=== PATIENT | male | born 1975 | race Caucasian/White ===

== ENCOUNTER 2017-06-11 11:11 | Emergency (ER) | payer BC ==
[2017-06-11] MEDS ORDERED: CLONIDINE HCL 0.1 MG TABLET PO ONE (12:06)
[2017-06-11] MEDS ORDERED: LORAZEPAM 2 MG/ML VIAL IM ONE (12:06)
[2017-06-11] MEDS ORDERED: PROMETHAZINE HCL 25 MG/ML VIAL IM ONE (12:06)
[2017-06-11] MEDS ORDERED: HYDROMORPHONE HCL 2 MG/ML VIAL IM ONE (12:14)
[2017-06-11 12:33] LABS: HEMATOCRIT 46.2 % (42.0-52.0); HEMOGLOBIN 16.4 gm/dl (14.0-18.0); MEAN CELL VOLUME 87.8 fl (81-97); MEAN CORPUSCULAR HEMOGLOBIN 31.2 pg (27-33); MEAN CORPUSCULAR HGB CONC 35.5 g/dl (32-36); MEAN PLATELET VOLUME 11.3 fl (7.4-10.4); PLATELET COUNT 203 K/uL (130-400); RED BLOOD COUNT 5.26 M/uL (4.40-5.70); RED CELL DISTRIBUTION WIDTH 13.3 % (11.5-14.5); WHITE BLOOD COUNT W/O DIFF 12.2 K/uL (4.2-12.2)
[2017-06-11 12:46] LABS: BLOOD UREA NITROGEN 20 mg/dL (6-20); CREATININE 0.8 mg/dL (0.7-1.2); EST GLOMERULAR FILTRATION RATE > 60 mL/min; TOTAL PROTEIN 8.6 g/dL (6.6-8.7)
[2017-06-11 12:48] LABS: GLUCOSE,RANDOM 139 mg/dL (74-109)
[2017-06-11 12:51] LABS: ALB/GLOB RATIO 1.3 (1.1-1.8); ALBUMIN 4.8 g/dL (4.0-5.0); ALKALINE PHOSPHATASE 80 U/L (40-129); ALT/SGPT 18 U/L (<41); AST/SGOT 25 U/L (10.0-50.0); PLATELET ESTIMATE NORMAL (NORMAL)
--- NOTE | 2017-06-11 12:54 | Emergency Department Record ---
History of Present Illness - General Chief complaint: Vomiting Stated complaint: VOMITING Time Seen by Provider: 06/11/17 11:27 Source: Patient Mode of Arrival: Ambulatory Limitations: No limitations - History of Present Illness Initial comments: pt is decreasing his oxycontin and is now vomiting and having withdrawal. pt is also having severe back pain that is chronic MD complaint: Abdominal pain, Nausea, Vomiting Onset/Timin -: Days(s) Associated Abdominal Pain: Yes Location: Diffuse Severity: Moderate Quality: Cramping, Sharp Consistency: Constant Improves with: None Worsens with: None Context: Other Associated Symptoms: Nausea/vomiting - Related Data Home Medications Medication Instructions Recorded Confirmed Last Taken Ergocalciferol (Vitamin D2) 06/11/17 Unknown [Vitamin D2] Previous Rx's Medication Instructions Recorded Clonidine HCl 0.1 mg PO BID #7 tablet 06/11/17 Lorazepam [Ativan] 0.5 mg PO QID #10 tablet 06/11/17 Ondansetron [Zofran Odt] 4 mg PO Q8H #10 tab.rapdis 06/11/17 Allergies Allergy/AdvReac Type Severity Reaction Status Date / Time No Known Drug Allergies Allergy Verified 06/11/17 11:48 Travel Screening - Travel/Exposure Within Last 30 Days Have you traveled within the last 30 days?: No - Travel/Exposure Within Last Year Have you traveled outside the [place] in the last year?: No - Additonal Travel Details Have you been exposed to anyone with a communicable illness?: No - Travel Symptoms Symptom Screening: None Review of Systems Reviewed: No additional complaints except as noted below Constitutional: Reports: As per HPI. Denies: Chills, Fever, Malaise, Night sweats, Weakness, Weight change Eyes: Reports: As per HPI. Denies: Eye discharge, Eye pain, Photophobia, Vision change ENT: Reports: As per HPI. Denies: Congestion, Dental pain, Ear pain, Epistaxis , Hearing loss, Throat pain Respiratory: Reports: As per HPI. Denies: Cough, Dyspnea, Hemoptysis, Stridor, Wheezes Cardiovascular: Reports: As per HPI. Denies: Arrhythmia, Chest pain, Dyspnea on exertion, Edema, Murmurs, Orthopnea, Palpitations, Paroxysmal nocturnal dyspnea, Rheumatic Fever, Syncope Endocrine: Reports: As per HPI. Denies: Fatigue, Heat or cold intolerance, Polydipsia, Polyuria Gastrointestinal: Reports: As per HPI, Abdominal pain, Nausea, Vomiting. Denies : Constipation, Diarrhea, Hematemesis, Hematochezia, Melena Genitourinary: Reports: As per HPI. Denies: Dysuria, Frequency, Hematuria, Incontinence, Retention, Testicular pain, Testicular mass, Urgency Musculoskeletal: Reports: As per HPI. Denies: Arthralgia, Back pain, Gout, Joint swelling, Myalgia, Neck pain Skin: Reports: As per HPI. Denies: Bruising, Change in color, Change in hair/ nails, Lesions, Pruritus, Rash Neurological: Reports: As per HPI. Denies: Abnormal gait, Confusion, Headache, Numbness, Paresthesias, Seizure, Tingling, Tremors, Vertigo, Weakness Psychiatric: Reports: As per HPI. Denies: Anxiety, Auditory hallucinations, Depression, Homicidal thoughts, Suicidal thoughts, Visual hallucinations Hematological/Lymphatic: Reports: As per HPI. Denies: Anemia, Blood Clots, Easy bleeding, Easy bruising, Swollen glands Past Medical History - SOCIAL HISTORY Smoking Status: Current some day smoker Alcohol Use: None Drug Use: Heavy Drug Use Detail:: Methamphetamine - RESPIRATORY Hx Respiratory Disorders: Yes Hx Pneumonia: Yes - CARDIOVASCULAR Hx Cardio Disorders: Yes Comment:: high cholesterol - NEURO Hx Neuro Disorders: Yes Hx Neuropathy: Yes Comment:: chronic back pain - GI Hx GI Disorders: Yes Hx Nausea/Vomiting: Yes Hx Wt Loss/Wt Gain: Yes - Hx Genitourinary Disorders: No - ENDOCRINE Hx Endocrine Disorders: No Hx Diabetes: No Hx Thyroid Disease: No - MUSCULOSKELETAL Hx Musculoskeletal Disorders: Yes Comment:: chronic back pain - PSYCH Hx Psych Problems: No - HEMATOLOGY/ONCOLOGY Hx Hematology/Oncology Disorders: No Family Medical History Any Significant Family History?: Yes Hx Alcohol Use: Grandparents Hx Anxiety: Mother Hx Cancer: Grandparents Hx Dementia: Grandparents Hx Diabetes: Grandparents Hx Heart Disease: Grandparents Hx Seizures: Grandparents Hx Stroke: Grandparents Physical Exam - General General Appearance: Alert, Oriented x3, Cooperative, Mild distress - Head Head exam: Normal inspection - Eye Eye exam: Normal appearance, PERRL, EOMI Pupils: Normal accommodation - ENT ENT exam: Normal exam, Mucous membranes moist, Normal external ear exam, Normal orophraynx, TM's normal bilaterally Ear exam: Normal external inspection. negative: External canal tenderness Nasal Exam: Normal inspection. negative: Discharge, Sinus tenderness Mouth exam: Normal external inspection, Tongue normal Teeth exam: Normal inspection. negative: Dental caries Throat exam: Normal inspection. negative: Tonsillar erythema, Tonsillar exudate - Neck Neck exam: Normal inspection, Full ROM. negative: Tenderness - Respiratory Respiratory exam: Normal lung sounds bilaterally. negative: Respiratory distress - Cardiovascular Cardiovascular Exam: Regular rate, Normal rhythm, Normal heart sounds - GI/Abdominal GI/Abdominal exam: Soft, Normal bowel sounds, Tenderness - Rectal Rectal exam: Deferred - exam: Deferred - Extremities Extremities exam: Normal inspection, Full ROM, Normal capillary refill. negative: Tenderness - Back Back exam: Reports: Normal inspection, Full ROM. Denies: Muscle spasm, Rash noted, Tenderness - Neurological Neurological exam: Alert, Normal gait, Oriented X3, Reflexes normal - Psychiatric Psychiatric exam: Normal affect, Normal mood - Skin Skin exam: Dry, Intact, Normal color, Warm Course Vital Signs 06/11/17 11:29 Temperature 98.1 F Pulse Rate 71 Respiratory 24 Rate Blood Pressure 135/79 Pulse Ox 99 Medical Decision Making - Lab Data Result diagrams: 06/11/17 12:23 06/11/17 12:23 Lab Results 06/11/17 06/11/17 Range/Units 12:23 12:23 WBC 12.2 (4.2-12.2) K/uL RBC 5.26 (4.40-5.70) M/uL Hgb 16.4 (14.0-18.0) gm/dl Hct 46.2 (42.0-52.0) % MCV 87.8 (81-97) fl MCH 31.2 (27-33) pg MCHC 35.5 (32-36) g/dl RDW 13.3 (11.5-14.5) % Plt Count 203 (130-400) K/uL MPV 11.3 H (7.4-10.4) fl Eosinophils % Not Reportable Basophils % Not Reportable Sodium 141 (136-145) mmol/L Potassium 4.0 (3.4-4.5) mmol/L Chloride 96 L (98-107) mmol/L Carbon Dioxide 23.0 (22-29) mmol/L Anion Gap 22.0 H (7-16) BUN 20 (6-20) mg/dL Creatinine 0.8 (0.7-1.2) mg/dL Estimated GFR > 60 mL/min Random Glucose 139 H (74-109) mg/dL Calcium 10.2 H (8.6-10.0) mg/dL Total Bilirubin 0.60 (0.2-1.0) mg/dL Total Protein 8.6 (6.6-8.7) g/dL Disposition Disposition: Discharge Clinical Impression: Opiate withdrawal Vomiting Qualifiers: Vomiting type: unspecified Vomiting Intractability: intractable Nausea presence : with nausea Qualified Code(s): R11.2 - Nausea with vomiting, unspecified Disposition: Home, Self-Care Condition: (1) Good Instructions: Acute Nausea and Vomiting (ED), Opioid Withdrawal (ED) Additional Instructions: follow up with family doctor. return sooner if worse Prescriptions: Clonidine HCl 0.1 mg PO BID #7 tablet Lorazepam [Ativan] 0.5 mg PO QID #10 tablet Ondansetron [Zofran Odt] 4 mg PO Q8H #10 tab.rapdis Forms: Patient Portal Access Quality - Quality Measures Quality Measures: N/A - Blood Pressure Screening Does Patient Have Any of the Following: No Blood Pressure Classification: Pre-Hypertensive BP Reading Systolic Measurement: 135 Diastolic Measurement: 79 Screening for High Blood Pressure: < Pre-Hypertensive BP, F/U Documented > [ G8950] Pre-Hypertensive Follow-up Interventions: Follow-up with rescreen every year.
[2017-06-11] MEDS ORDERED: 0.9 % SODIUM CHLORIDE 1,000 ML BAG IV ONE (13:08)
== END 2017-06-11 15:21 | disposition home or self-care (01) ==
LOC: ER 11:11
DX: F11.23 Opioid dependence with withdrawal (principal); R11.2 Nausea with vomiting, unspecified; R10.9 Unspecified abdominal pain; G89.29 Other chronic pain; M54.9 Dorsalgia, unspecified; F17.210 Nicotine dependence, cigarettes, uncomplicated
CPT/HCPCS: 99284 ×2; 96360; 96372; 96361; 80053; 85027; J1170; J2060; J2550; J7030

== ENCOUNTER 2017-07-28 21:24 | Emergency (ER) | payer BC ==
[2017-07-28] MEDS ORDERED: DIPHENHYDRAMINE HCL 50 MG/ML VIAL IVP ONE (22:59)
[2017-07-28] MEDS ORDERED: 0.9 % SODIUM CHLORIDE 1,000 ML BAG IV ONE ×2 (22:59→23:42)
[2017-07-28] MEDS ORDERED: PROMETHAZINE HCL 25 MG/ML VIAL IVP ONE (22:59)
[2017-07-28] MEDS ORDERED: LORAZEPAM 2 MG/ML VIAL IV ONE (23:00)
--- NOTE | 2017-07-28 23:03 | Emergency Department Record ---
History of Present Illness - General Chief complaint: Vomiting Stated complaint: VOMITING,CHILLS,HOT FLASHES Time Seen by Provider: 07/28/17 22:58 Source: Patient, Family Mode of Arrival: Ambulatory Limitations: No limitations - History of Present Illness Initial comments: 41 yo male presents with nausea, vomiting, diarrhea, and cramps with uncontrolled back pain. He has chronic back pain. He states he is trying to wean down the MS Contin that he has been on for years. His PCP is the [facility]. He states he is down to one dose every 36 hours. The symptoms have gradually worsened the last 4 days. No history of back surgery. MD complaint: Abdominal pain, Diarrhea, Nausea, Vomiting -: Days(s) Description of Vomiting: Watery Description of Diarrhea: Water Location: Diffuse Radiation: None Severity: Moderate Quality: Cramping Consistency: Constant Improves with: None Worsens with: Eating Associated Symptoms: Loss of appetite, Malaise, Nausea/vomiting - Related Data Home Medications Medication Instructions Recorded Confirmed Last Taken Morphine Sulfate [Morphine Sulfate 60 mg PO ASDIR 07/28/17 07/28/17 Unknown ER] Previous Rx's Medication Instructions Recorded Clonidine HCl 0.1 mg PO BID #7 tablet 06/11/17 Ondansetron [Zofran Odt] 4 mg PO Q8H #10 tab.rapdis 06/11/17 Allergies Allergy/AdvReac Type Severity Reaction Status Date / Time No Known Drug Allergies Allergy Verified 06/11/17 11:48 Review of Systems Constitutional: Reports: Malaise. Denies: Chills, Fever Eyes: Denies: Eye discharge, Eye pain, Photophobia ENT: Denies: Congestion, Throat pain Respiratory: Denies: Cough, Dyspnea, Hemoptysis, Stridor, Wheezes Cardiovascular: Denies: Chest pain, Palpitations, Syncope Endocrine: Reports: Fatigue Gastrointestinal: Reports: As per HPI, Abdominal pain, Diarrhea, Nausea, Vomiting Genitourinary: Denies: Dysuria, Frequency, Hematuria Musculoskeletal: Reports: Back pain. Denies: Arthralgia, Myalgia Skin: Denies: Bruising, Change in color, Rash Neurological: Denies: Headache Psychiatric: Denies: Anxiety Hematological/Lymphatic: Denies: Blood Clots, Easy bleeding, Easy bruising, Swollen glands Past Medical History - SOCIAL HISTORY Smoking Status: Current some day smoker Drug Use: Heavy Drug Use Detail:: Methamphetamine - RESPIRATORY Hx Respiratory Disorders: Yes Hx Pneumonia: Yes - CARDIOVASCULAR Hx Cardio Disorders: Yes Comment:: high cholesterol - NEURO Hx Neuro Disorders: Yes Hx Neuropathy: Yes Comment:: chronic back pain - GI Hx GI Disorders: Yes Hx Nausea/Vomiting: Yes Hx Wt Loss/Wt Gain: Yes - Hx Genitourinary Disorders: No - ENDOCRINE Hx Endocrine Disorders: No Hx Diabetes: No Hx Thyroid Disease: No - MUSCULOSKELETAL Hx Musculoskeletal Disorders: Yes Comment:: chronic back pain - PSYCH Hx Psych Problems: No - HEMATOLOGY/ONCOLOGY Hx Hematology/Oncology Disorders: No Family Medical History Hx Alcohol Use: Grandparents Hx Anxiety: Mother Hx Cancer: Grandparents Hx Dementia: Grandparents Hx Diabetes: Grandparents Hx Heart Disease: Grandparents Hx Seizures: Grandparents Hx Stroke: Grandparents Physical Exam - General General Appearance: Alert, Oriented x3, Cooperative, No acute distress Limitations: No limitations - Head Head exam: Atraumatic, Normal inspection - Eye Eye exam: Normal appearance, PERRL. negative: Conjunctival injection, Scleral icterus - ENT ENT exam: Normal exam Ear exam: Normal external inspection Nasal Exam: Normal inspection Mouth exam: Normal external inspection - Neck Neck exam: Normal inspection, Full ROM. negative: Tenderness - Respiratory Respiratory exam: Normal lung sounds bilaterally. negative: Respiratory distress - Cardiovascular Cardiovascular Exam: Regular rate, Normal rhythm, Normal heart sounds - GI/Abdominal GI/Abdominal exam: Soft, Tenderness (mild tenderness, soft abdomen). negative: Distended, Guarding, Hypoactive bowel sounds, Rebound, Rigid - Rectal Rectal exam: Deferred - exam: Deferred - Extremities Extremities exam: Normal inspection - Back Back exam: Denies: CVA tenderness (R), CVA tenderness (L) - Neurological Neurological exam: Alert, Oriented X3 - Psychiatric Psychiatric exam: Normal affect, Normal mood. negative: Agitated, Anxious - Skin Skin exam: Dry, Intact, Normal color, Warm Course Vital Signs 07/28/17 22:45 Temperature 97.6 F Pulse Rate [ 88 Pulse Ox Probe] Respiratory 28 H Rate Blood Pressure 141/83 [Left Arm] Pulse Ox 100 - Reevaluation(s) Reevaluation #1: 07/29/17 00:00 The labs were reviewed CBC with WBC of 13 The CMP with AG of 28, HCO3 19, BUN 25 Lipase is normal 07/29/17 00:57 The patient is feeling much improved on recheck His pain is better and his nausea and vomiting are well controlled. 07/29/17 01:26 The labs were significantly improved The patient is feeling much better DC home I strongly recommended calling his PCP tomorrow to discuss an approach to his long term care social worker pain management Medical Decision Making - Lab Data Result diagrams: 07/28/17 23:05 07/29/17 01:02 Disposition Disposition: Discharge Clinical Impression: Narcotic withdrawal Nausea and vomiting Qualifiers: Vomiting type: unspecified Vomiting Intractability: non-intractable Qualified Code(s): R11.2 - Nausea with vomiting, unspecified Disposition: Home, Self-Care Condition: (1) Good Instructions: Acute Nausea and Vomiting (ED) Additional Instructions: Call your doctor tomorrow to discuss your plan for long term care social worker pain control Be seen immediately if worse or any return of symptoms Forms: Patient Portal Access Time of Disposition: 01:28 Quality - Quality Measures Quality Measures: N/A - Blood Pressure Screening Does Patient Have Any of the Following: No Blood Pressure Classification: Pre-Hypertensive BP Reading Systolic Measurement: 120 Diastolic Measurement: 72 Screening for High Blood Pressure: < Pre-Hypertensive BP, F/U Documented > [ G8950] Pre-Hypertensive Follow-up Interventions: Referral to alternative/primary care provider.
[2017-07-28 23:13] LABS: HEMATOCRIT 46.5 % (42.0-52.0); HEMOGLOBIN 16.6 gm/dl (14.0-18.0); MEAN CELL VOLUME 88.9 fl (81-97); MEAN CORPUSCULAR HEMOGLOBIN 31.7 pg (27-33); MEAN CORPUSCULAR HGB CONC 35.7 g/dl (32-36); MEAN PLATELET VOLUME 11.3 fl (7.4-10.4); PLATELET COUNT 239 K/uL (130-400); RED BLOOD COUNT 5.23 M/uL (4.40-5.70); RED CELL DISTRIBUTION WIDTH 13.1 % (11.5-14.5); WHITE BLOOD COUNT W/O DIFF 13.6 K/uL (4.2-12.2)
[2017-07-28 23:25] LABS: BLOOD UREA NITROGEN 25 mg/dL (6-20); CREATININE 1.1 mg/dL (0.7-1.2); EST GLOMERULAR FILTRATION RATE > 60 mL/min
[2017-07-28 23:26] LABS: TOTAL PROTEIN 8.1 g/dL (6.6-8.7)
[2017-07-28 23:28] LABS: GLUCOSE,RANDOM 151 mg/dL (74-109)
[2017-07-28 23:31] LABS: ALB/GLOB RATIO 1.8 (1.1-1.8); ALBUMIN 5.2 g/dL (4.0-5.0); ALKALINE PHOSPHATASE 74 U/L (40-129); ALT/SGPT 25 U/L (<41); AST/SGOT 19 U/L (10.0-50.0); LIPASE 29 U/L (13-60)
[2017-07-28] MEDS ORDERED: HYDROMORPHONE HCL 2 MG/ML VIAL IVP ONE (23:42)
[2017-07-29 01:24] LABS: BLOOD UREA NITROGEN 23 mg/dL (6-20); EST GLOMERULAR FILTRATION RATE > 60 mL/min; GLUCOSE,RANDOM 124 mg/dL (74-109)
== END 2017-07-29 01:32 | disposition home or self-care (01) ==
LOC: ER 21:24
DX: F11.23 Opioid dependence with withdrawal (principal); R11.2 Nausea with vomiting, unspecified; R19.7 Diarrhea, unspecified; R10.9 Unspecified abdominal pain; F17.210 Nicotine dependence, cigarettes, uncomplicated
CPT/HCPCS: 99284 ×2; 96374; 96375; 83690; 80048; 80053; 85027; J1170; J2060; J1200; J2550; J7030

== ENCOUNTER 2017-07-29 14:58 | Observation (INO) | payer BC ==
[2017-07-29] MEDS ORDERED: ONDANSETRON HCL IV 4 MG/2 ML VIAL IVP ONE (15:42)
[2017-07-29] MEDS ORDERED: LORAZEPAM 2 MG/ML VIAL IV ONE (15:43)
[2017-07-29] MEDS ORDERED: 0.9 % SODIUM CHLORIDE 1000ML 1,000 ML IV SCH (15:45)
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
[2017-07-29 16:11] LABS: BASO % 0.1 % (0-6); EOS % 0.9 % (0-6); GRAN % 70.8 % (47-80); HEMOGLOBIN 15.2 gm/dl (14.0-18.0); LYMPH % 21.6 % (16-45); MEAN CELL VOLUME 90.5 fl (81-97); MEAN CORPUSCULAR HGB CONC 35.3 g/dl (32-36); MEAN PLATELET VOLUME 11.8 fl (7.4-10.4); MONO % 6.6 % (0-9); RED BLOOD COUNT 4.75 M/uL (4.40-5.70); RED CELL DISTRIBUTION WIDTH 13.4 % (11.5-14.5); WHITE BLOOD COUNT W/O DIFF 9.2 K/uL (4.2-12.2)
[2017-07-29 16:13] LABS: BLOOD UREA NITROGEN 21 mg/dL (6-20); CREATININE 0.8 mg/dL (0.7-1.2); EST GLOMERULAR FILTRATION RATE > 60 mL/min
[2017-07-29 16:14] LABS: TOTAL PROTEIN 7.5 g/dL (6.6-8.7)
[2017-07-29 16:16] LABS: GLUCOSE,RANDOM 87 mg/dL (74-109)
[2017-07-29 16:18] LABS: ALT/SGPT 22 U/L (<41); AST/SGOT 28 U/L (10.0-50.0); PLATELET COUNT 81 K/uL (130-400)
[2017-07-29 16:19] LABS: ALB/GLOB RATIO 1.6 (1.1-1.8); ALBUMIN 4.6 g/dL (4.0-5.0); ALKALINE PHOSPHATASE 63 U/L (40-129); LIPASE 31 U/L (13-60)
[2017-07-29] MEDS ORDERED: HYDROMORPHONE HCL 2 MG/ML VIAL IVP ONE (16:34)
[2017-07-29] MEDS ORDERED: DIPHENHYDRAMINE HCL 50 MG/ML VIAL IVP ONE (17:26)
[2017-07-29] MEDS ORDERED: PROMETHAZINE HCL 25 MG in 0.9 % SODIUM CHLORIDE 100ML 100 ML IVPB ONE (17:26)
[2017-07-29] MEDS ORDERED: NICOTINE 21 MG/24 HOUR PATCH TD SCH (19:15)
[2017-07-29] MEDS: METOCLOPRAMIDE HCL 10 MG/2 ML VIAL IVP PRN (19:51)
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
[2017-07-29] MEDS: ONDANSETRON HCL IV 4 MG/2 ML VIAL IVP PRN (22:27)
[2017-07-29] MEDS: HYDROMORPHONE HCL 2 MG/ML VIAL IVP PRN (22:34)
[2017-07-30] MEDS: METOCLOPRAMIDE HCL 10 MG/2 ML VIAL IVP PRN ×2 (01:49→10:28)
[2017-07-30] MEDS: HYDROMORPHONE HCL 2 MG/ML VIAL IVP PRN ×4 (01:50→14:10)
[2017-07-30] MEDS: ONDANSETRON HCL IV 4 MG/2 ML VIAL IVP PRN ×2 (05:29→13:56)
[2017-07-30 07:12] LABS: ALB/GLOB RATIO 1.8 (1.1-1.8); ALBUMIN 3.9 g/dL (4.0-5.0); ALKALINE PHOSPHATASE 53 U/L (40-129); ALT/SGPT 19 U/L (<41); AST/SGOT 21 U/L (10.0-50.0); BLOOD UREA NITROGEN 16 mg/dL (6-20); CREATININE 0.8 mg/dL (0.7-1.2); EST GLOMERULAR FILTRATION RATE > 60 mL/min; GLUCOSE,RANDOM 87 mg/dL (74-109); TOTAL PROTEIN 6.1 g/dL (6.6-8.7)
[2017-07-30] MEDS: 0.9 % SODIUM CHLORIDE 1000ML 1,000 ML IV PRN ×2 (10:17→18:16)
[2017-07-30] MEDS: CYCLOBENZAPRINE 10MG TABLET PO PRN ×2 (10:29→16:30)
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
[2017-07-30] MEDS ORDERED: PROCHLORPERAZINE MALEATE 10 MG TABLET PO ONE (15:19)
[2017-07-30] MEDS ORDERED: MORPHINE SULFATE 30MG TABLET.ER PO ONE (16:00)
[2017-07-30] MEDS ORDERED: METOCLOPRAMIDE 10 MG TABLET PO PRN (17:30)
[2017-07-31] MEDS ORDERED: MORPHINE SULFATE 30MG TABLET.ER PO SCH (06:00)
== END 2017-07-30 19:30 | disposition home or self-care (01) ==
LOC: ER 14:58 → MEDSURG 17:22
PROVIDERS: ADMIT Internal Medicine; ATTEND Internal Medicine
DX: F11.23 Opioid dependence with withdrawal (principal); M54.5 Low back pain; G89.29 Other chronic pain; F17.210 Nicotine dependence, cigarettes, uncomplicated
CPT/HCPCS: 80053; 83690; 85025; 96361; 96375; 99220; 99285; J1200; J2405; J2550; J2765; J7030

== ENCOUNTER 2017-08-01 14:44 | Emergency (ER) | payer BC ==
[2017-08-01] MEDS ORDERED: 0.9 % SODIUM CHLORIDE 1,000 ML BAG IV ONE (15:42)
[2017-08-01] MEDS ORDERED: ONDANSETRON HCL IV 4 MG/2 ML VIAL IVP ONE (15:43)
[2017-08-01] MEDS ORDERED: LORAZEPAM 2 MG/ML VIAL IV ONE (17:03)
[2017-08-01] MEDS ORDERED: CLONIDINE HCL 0.1 MG TABLET PO ONE (17:03)
--- NOTE | 2017-08-01 17:18 | Emergency Department Record ---
History of Present Illness - General Chief Complaint: Detox Evaluation Stated Complaint: WITHDRAWING FROM MEDS AND BACK PAIN Time Seen by Provider: 08/01/17 15:24 Source: Patient Mode of Arrival: Ambulatory Limitations: No limitations Travel/Exposure to [place] Within 21 Days of Symptoms: No - History of Present Illness Initial Comments: pt is withdrawing from opiates as he is trying to taper himself down. he just was released from the hospital for intractable vomiting and opiate withdrawal . he had an appt w dr tipton today at 3 however he was vomiting again so he was sent from dr stiles office to waiting room. he is under the impression that he was going to get a rx for a decreased dosage as he continues to taper from dr tipton -: Unknown Associated Psychiatric Symptoms: None History of same: Yes Quality: Constant Improves With: None Worsens With: None Context: Recent drug abuse Associated Symptoms: Nausea Treatments Prior to Arrival: None - Jef Coma Scale Eye Response: (4) Open spontaneously Motor Response: (6) Obeys commands Verbal Response: (5) Oriented Jef Total: 15 - Related Data Previous Rx's Medication Instructions Recorded Clonidine HCl 0.1 mg PO BID #7 tablet 06/11/17 Ondansetron [Zofran Odt] 4 mg PO Q8H #10 tab.rapdis 06/11/17 Metoclopramide HCl [Reglan] 10 mg PO TID PRN #10 tablet 07/30/17 Ondansetron [Zofran Odt] 4 mg PO Q8H PRN #10 tab.rapdis 07/30/17 Clonidine HCl 0.1 mg PO BID #7 tablet 08/01/17 Lorazepam [Ativan] 0.5 mg PO TID #10 tablet 08/01/17 Allergies Allergy/AdvReac Type Severity Reaction Status Date / Time No Known Drug Allergies Allergy Verified 08/01/17 14:57 Review of Systems Reviewed: No additional complaints except as noted below Constitutional: Reports: As per HPI. Denies: Chills, Fever, Malaise, Night sweats, Weakness, Weight change Eyes: Reports: As per HPI. Denies: Eye discharge, Eye pain, Photophobia, Vision change ENT: Reports: As per HPI. Denies: Congestion, Dental pain, Ear pain, Epistaxis , Hearing loss, Throat pain Respiratory: Reports: As per HPI. Denies: Cough, Dyspnea, Hemoptysis, Stridor, Wheezes Cardiovascular: Reports: As per HPI. Denies: Arrhythmia, Chest pain, Dyspnea on exertion, Edema, Murmurs, Orthopnea, Palpitations, Paroxysmal nocturnal dyspnea, Rheumatic Fever, Syncope Endocrine: Reports: As per HPI. Denies: Fatigue, Heat or cold intolerance, Polydipsia, Polyuria Gastrointestinal: Reports: As per HPI. Denies: Abdominal pain, Constipation, Diarrhea, Hematemesis, Hematochezia, Melena, Nausea, Vomiting Genitourinary: Reports: As per HPI. Denies: Dysuria, Frequency, Hematuria, Incontinence, Retention, Testicular pain, Testicular mass, Urgency Musculoskeletal: Reports: As per HPI. Denies: Arthralgia, Back pain, Gout, Joint swelling, Myalgia, Neck pain Skin: Reports: As per HPI. Denies: Bruising, Change in color, Change in hair/ nails, Lesions, Pruritus, Rash Neurological: Reports: As per HPI. Denies: Abnormal gait, Confusion, Headache, Numbness, Paresthesias, Seizure, Tingling, Tremors, Vertigo, Weakness Psychiatric: Reports: As per HPI. Denies: Anxiety, Auditory hallucinations, Depression, Homicidal thoughts, Suicidal thoughts, Visual hallucinations Hematological/Lymphatic: Reports: As per HPI. Denies: Anemia, Blood Clots, Easy bleeding, Easy bruising, Swollen glands Past Medical History - SOCIAL HISTORY Smoking Status: Current some day smoker Alcohol Use: None Drug Use Detail:: Opiates, Prescription drug abuse - RESPIRATORY Hx Respiratory Disorders: Yes Hx Pneumonia: Yes - CARDIOVASCULAR Hx Cardio Disorders: Yes Comment:: high cholesterol - NEURO Hx Neuro Disorders: Yes Hx Neuropathy: Yes Comment:: chronic back pain - GI Hx GI Disorders: Yes Hx Nausea/Vomiting: Yes Hx Wt Loss/Wt Gain: Yes - Hx Genitourinary Disorders: No - ENDOCRINE Hx Endocrine Disorders: No Hx Diabetes: No Hx Thyroid Disease: No - MUSCULOSKELETAL Hx Musculoskeletal Disorders: Yes Comment:: chronic back pain - PSYCH Hx Psych Problems: No - HEMATOLOGY/ONCOLOGY Hx Hematology/Oncology Disorders: No Family Medical History Any Significant Family History?: Yes Hx Alcohol Use: Grandparents Hx Anxiety: Mother Hx Cancer: Grandparents Hx Dementia: Grandparents Hx Diabetes: Grandparents Hx Heart Disease: Grandparents Hx Seizures: Grandparents Hx Stroke: Grandparents Physical Exam - General General Appearance: Alert, Oriented x3, Cooperative, Mild distress - Head Head exam: Normal inspection - Eye Eye exam: Normal appearance, PERRL, EOMI Pupils: Normal accommodation - ENT ENT exam: Normal exam, Mucous membranes moist, Normal external ear exam, Normal orophraynx Ear exam: Normal external inspection. negative: External canal tenderness Nasal Exam: Normal inspection. negative: Discharge, Sinus tenderness Mouth exam: Normal external inspection, Tongue normal Teeth exam: Normal inspection. negative: Dental caries Throat exam: Normal inspection. negative: Tonsillar erythema, Tonsillar exudate - Neck Neck exam: Normal inspection, Full ROM. negative: Tenderness - Respiratory Respiratory exam: Normal lung sounds bilaterally. negative: Respiratory distress - Cardiovascular Cardiovascular Exam: Regular rate, Normal rhythm, Normal heart sounds - GI/Abdominal GI/Abdominal exam: Soft, Normal bowel sounds. negative: Tenderness - Rectal Rectal exam: Deferred - exam: Deferred - Extremities Extremities exam: Normal inspection, Full ROM, Normal capillary refill. negative: Tenderness - Back Back exam: Reports: Normal inspection, Full ROM. Denies: Muscle spasm, Rash noted, Tenderness - Neurological Neurological exam: Alert, CN II-XII intact, Normal gait, Oriented X3 - Psychiatric Psychiatric exam: Normal affect, Normal mood - Skin Skin exam: Dry, Intact, Normal color, Warm Course Vital Signs 08/01/17 14:57 Temperature 98.6 F Pulse Rate 93 H Respiratory 20 Rate Blood Pressure 153/105 Pulse Ox 97 - Reevaluation(s) Reevaluation #1: 08/01/17 17:19 d/w dr tipton who stated he had not planned on giving a rx. Reevaluation #2: 08/01/17 17:20 pt given large number of resources for rehab and suboxone clinics Disposition Disposition: Discharge Clinical Impression: Opiate withdrawal Chronic low back pain Qualifiers: Back pain laterality: bilateral Sciatica presence: with sciatica Sciatica laterality: sciatica laterality unspecified Qualified Code(s): M54.40 - Lumbago with sciatica, unspecified side; G89.29 - Other chronic pain Disposition: Home, Self-Care Condition: (1) Good Instructions: Opioid Withdrawal (ED), Chronic Back Pain (ED) Additional Instructions: follow up with family doctorand with clinic. return sooner if worse. Prescriptions: Clonidine HCl 0.1 mg PO BID #7 tablet Lorazepam [Ativan] 0.5 mg PO TID #10 tablet Quality - Quality Measures Quality Measures: N/A - Blood Pressure Screening Does Patient Have Any of the Following: No Blood Pressure Classification: Hypertensive Reading Systolic Measurement: 153 Diastolic Measurement: 105 Screening for High Blood Pressure: < First Hypertensive BP, F/U Documented > [ G8950] First Hypertensive Follow-up Interventions: Follow-up with rescreen GT 1 day and LT 4 weeks.
== END 2017-08-01 17:38 | disposition home or self-care (01) ==
LOC: ER 14:44
DX: F11.23 Opioid dependence with withdrawal (principal); M54.40 Lumbago with sciatica, unspecified side; G89.29 Other chronic pain; R11.0 Nausea; F17.210 Nicotine dependence, cigarettes, uncomplicated; Z79.899 Other long term (current) drug therapy
CPT/HCPCS: 96361; 96374; 96375; 99284; J2405; J7030

== ENCOUNTER 2018-02-27 18:46 | Emergency (ER) | payer BC ==
[2018-02-27] MEDS ORDERED: ONDANSETRON HCL IV 4 MG/2 ML VIAL IVP ONE (18:56)
[2018-02-27] MEDS ORDERED: 0.9 % SODIUM CHLORIDE 1,000 ML BAG IV ONE (18:56)
[2018-02-27] MEDS ORDERED: LORAZEPAM 2 MG/ML VIAL IV ONE (18:57)
--- NOTE | 2018-02-27 19:05 | Emergency Department Record ---
History of Present Illness - General Chief complaint: Vomiting Stated complaint: VOMITING, ABD CRAMPS Source: Patient, Family Mode of Arrival: Ambulatory Limitations: No limitations - History of Present Illness Initial comments: 42 yo male presents with abdominal cramps, nausea, and vomiting. The onset was early in the morning. No fevers or chills. The vomiting is a dry heave. He has waves of cramps. He reports he is working with Dr Ambrose weaning his narcotic prescription of MS Contin. These episodes occur at times as he has been weaning. He reports to me he has had CT scans and scopes by GI without any alternative diagnosis. His next does of oral medication is at 9pm. He reports his original prescription of MS Contin was from Dr [facility]. His does not have refills as he has been trying to self wean. MD complaint: Abdominal pain, Diarrhea, Nausea, Vomiting -: Days(s) (`) Description of Vomiting: Watery Description of Diarrhea: Water Associated Abdominal Pain: Yes Location: Diffuse Radiation: Other Severity: Moderate Quality: Cramping Consistency: Constant Improves with: None Worsens with: Other (Extending doses time between MS Contin) Context: Other Associated Symptoms: Loss of appetite, Nausea/vomiting - Related Data Home Medications Medication Instructions Recorded Confirmed Last Taken Morphine Sulfate [Ms Contin] 60 mg PO ASDIR 02/27/18 02/27/18 02/24/18 Previous Rx's Medication Instructions Recorded Hyoscyamine Sulfate [Levsin-Sl] 0.125 mg SL Q12H #14 tab.subl 02/27/18 Ondansetron [Zofran Odt] 4 mg PO Q8H #20 tab.rapdis 02/27/18 Allergies Allergy/AdvReac Type Severity Reaction Status Date / Time No Known Drug Allergies Allergy Verified 02/27/18 18:52 Review of Systems Constitutional: Denies: Chills, Fever, Malaise, Weakness Eyes: Denies: Eye discharge, Eye pain, Vision change ENT: Denies: Congestion, Throat pain Respiratory: Denies: Cough, Dyspnea, Wheezes Cardiovascular: Denies: Chest pain, Syncope Endocrine: Denies: Fatigue Gastrointestinal: Reports: Abdominal pain, Diarrhea (water, gel like), Nausea, Vomiting Genitourinary: Denies: Dysuria, Frequency, Hematuria Musculoskeletal: Denies: Arthralgia, Back pain, Joint swelling, Myalgia Skin: Denies: Bruising, Change in color, Rash Neurological: Denies: Confusion, Headache Psychiatric: Denies: Anxiety Hematological/Lymphatic: Denies: Easy bleeding, Easy bruising Past Medical History - SOCIAL HISTORY Smoking Status: Current some day smoker Drug Use Detail:: Opiates, Prescription drug abuse - RESPIRATORY Hx Respiratory Disorders: Yes Hx Pneumonia: Yes - CARDIOVASCULAR Hx Cardio Disorders: Yes Comment:: high cholesterol - NEURO Hx Neuro Disorders: Yes Hx Neuropathy: Yes Comment:: chronic back pain - GI Hx GI Disorders: Yes Hx Nausea/Vomiting: Yes Hx Wt Loss/Wt Gain: Yes - Hx Genitourinary Disorders: No - ENDOCRINE Hx Endocrine Disorders: No Hx Diabetes: No Hx Thyroid Disease: No - MUSCULOSKELETAL Hx Musculoskeletal Disorders: Yes Comment:: chronic back pain - PSYCH Hx Psych Problems: No - HEMATOLOGY/ONCOLOGY Hx Hematology/Oncology Disorders: No Family Medical History Hx Alcohol Use: Grandparents Hx Anxiety: Mother Hx Cancer: Grandparents Hx Dementia: Grandparents Hx Diabetes: Grandparents Hx Heart Disease: Grandparents Hx Seizures: Grandparents Hx Stroke: Grandparents Physical Exam - General General Appearance: Alert, Oriented x3, Cooperative, No acute distress Limitations: No limitations - Head Head exam: Atraumatic, Normal inspection - Eye Eye exam: Normal appearance. negative: Conjunctival injection - ENT ENT exam: Normal exam, Mucous membranes moist, Normal orophraynx Ear exam: Normal external inspection Nasal Exam: Normal inspection Mouth exam: Normal external inspection - Neck Neck exam: Normal inspection - Respiratory Respiratory exam: Normal lung sounds bilaterally. negative: Respiratory distress - Cardiovascular Cardiovascular Exam: Regular rate, Normal rhythm, Normal heart sounds - GI/Abdominal GI/Abdominal exam: Soft, Tenderness (diffusely tender but very soft, no R or G) . negative: Distended, Guarding, Mass, Rebound, Rigid (very soft) - Rectal Rectal exam: Deferred - exam: Deferred - Extremities Extremities exam: Normal inspection. negative: Tenderness - Back Back exam: Denies: CVA tenderness (R), CVA tenderness (L) - Neurological Neurological exam: Alert, Oriented X3 - Psychiatric Psychiatric exam: Normal affect, Normal mood - Skin Skin exam: Dry, Intact, Normal color, Warm Course - Reevaluation(s) Reevaluation #1: The vitals were reviewed. No significant abnormalities The EMR was reviewed. Multiple prior visits for similar symptoms noted 02/27/18 20:14 The labs were reviewed. CBC with WBC of 12 CMP with AG of 21 HCO3 of 21 Lipase is normal Patient continuing IVF without vomiting at this time. 02/27/18 20:45 Nausea and vomiting returned. Reglan and Bendadryl ordered. 02/27/18 20:53 The patient is approaching his scheduled time for his MS Contin. He likely is having withdrawal. He is aware that shelter prescriptions will need to come through the pain clinic. He states he is waiting to get a copy of his MRI to take with him for an appointment with Dr Adrian. I called radiology to make the needed copy to assist him in expediting his pain referral. He will be given very limited narcotic in the ED as a means control his withdrawal. He states in the past he was not sent home with anti-emetics. I assured him I would provide resources that are non narcotic to assist him. 02/27/18 21:33 EMR further reviewed to April. The patient to date has declined other options such as methadone clinic referrals, therapy. He has continued with the self wean. He has about 20 MS Contin at home. He is taking one every 40-45 hours. He is aware of his finite supply and the need to be intentional with follow up and seeing a pain clinic. 02/27/18 22:15 He states his nausea is returning. He does not think at this time he will be able to tolerate PO or his medication. Additional fluids infusing. 02/27/18 22:54 The patient states he is doing much better. We discussed options at this point of DC vs OBV. He states he is ready for DC and thinks he will be OK at home given he has been through this several times in the past. He is well aware of reasons to return for a recheck Medical Decision Making - Lab Data Result diagrams: 02/27/18 19:45 02/27/18 19:45 Disposition Disposition: Discharge Clinical Impression: Vomiting and diarrhea, Narcotic withdrawal Disposition: Home, Self-Care Condition: (1) Good Instructions: Acute Nausea and Vomiting (ED) Additional Instructions: Call Dr Ambrose's office and Dr Adrian's office tomorrow for close follow. Return if you have intractable vomiting and unable to take your medications. Prescriptions: Hyoscyamine Sulfate [Levsin-Sl] 0.125 mg SL Q12H #14 tab.subl Ondansetron [Zofran Odt] 4 mg PO Q8H #20 tab.rapdis Forms: Patient Portal Access Time of Disposition: 22:57 Quality - Quality Measures Quality Measures: N/A - Blood Pressure Screening Does Patient Have Any of the Following: No Blood Pressure Classification: Pre-Hypertensive BP Reading Systolic Measurement: 126 Diastolic Measurement: 72 Screening for High Blood Pressure: < Pre-Hypertensive BP, F/U Documented > [ G8950] Pre-Hypertensive Follow-up Interventions: Referral to alternative/primary care provider.
[2018-02-27] MEDS ORDERED: ONDANSETRON 4 MG ODT TABLET SL ONE ×3 (19:32→22:53)
[2018-02-27] MEDS ORDERED: LORAZEPAM 2 MG/ML VIAL IM ONE (19:32)
[2018-02-27 19:54] LABS: BASO % 0.1 % (0-6); HEMATOCRIT 45.8 % (42.0-52.0); LYMPH % 6.6 % (16-45); MEAN CELL VOLUME 87.2 fl (81-97); MEAN CORPUSCULAR HEMOGLOBIN 30.5 pg (27-33); MEAN CORPUSCULAR HGB CONC 34.9 g/dl (32-36); MEAN PLATELET VOLUME 10.8 fl (7.4-10.4); MONO % 3.4 % (0-9); PLATELET COUNT 229 K/uL (130-400); RED BLOOD COUNT 5.25 M/uL (4.40-5.70); RED CELL DISTRIBUTION WIDTH 12.9 % (11.5-14.5); WHITE BLOOD COUNT W/O DIFF 12.8 K/uL (4.2-12.2)
[2018-02-27 20:06] LABS: BLOOD UREA NITROGEN 19 mg/dL (6-20); EST GLOMERULAR FILTRATION RATE > 60 mL/min; TOTAL PROTEIN 8.5 g/dL (6.6-8.7)
[2018-02-27 20:09] LABS: GLUCOSE,RANDOM 145 mg/dL (74-109)
[2018-02-27 20:11] LABS: ALB/GLOB RATIO 1.5 (1.1-1.8); ALBUMIN 5.1 g/dL (4.0-5.0); ALKALINE PHOSPHATASE 73 U/L (40-129); ALT/SGPT 18 U/L (<41); AST/SGOT 22 U/L (10.0-50.0); LIPASE 24 U/L (13-60)
[2018-02-27] MEDS ORDERED: DICYCLOMINE HCL 10 MG/ML AMPUL IM ONE (20:17)
[2018-02-27] MEDS ORDERED: DIPHENHYDRAMINE HCL 50 MG/ML VIAL IVP ONE (20:43)
[2018-02-27] MEDS ORDERED: METOCLOPRAMIDE HCL 10 MG/2 ML VIAL IVP ONE (20:43)
[2018-02-27] MEDS ORDERED: MORPHINE SULFATE 10 MG/ML VIAL IVP ONE (20:53)
[2018-02-27] MEDS ORDERED: 0.9 % SODIUM CHLORIDE 1000ML 1,000 ML IV ONE (22:10)
[2018-02-27 22:25] LABS: URINE APPEARANCE CLEAR; URINE BILIRUBIN NEGATIVE (NEGATIVE); URINE BLOOD SMALL (NEGATIVE); URINE COLOR YELLOW; URINE GLUCOSE (UA) NEGATIVE (NEGATIVE); URINE KETONE 15 mg/dL (NEGATIVE); URINE LEUKOCYTE ESTERASE NEGATIVE (NEGATIVE); URINE NITRITE NEGATIVE (NEGATIVE); URINE PROTEIN TRACE (NEGATIVE); URINE UROBILINOGEN 0.2 E.U./dL (0.20 - 1.00)
[2018-02-27 22:27] LABS: URINE BACTERIA NONE SEEN; URINE EPITHELIAL CELLS 0 - 2 (FEW); URINE RBC 0 - 2 (NONE SEEN); URINE WBC 0 - 2 (0-2/hpf)
[2018-02-27] MEDS ORDERED: HYOSCYAMINE SULFATE ODT 0.125 MG TAB.SUBL SL ONE ×2 (22:53→22:54)
== END 2018-02-27 23:14 | disposition home or self-care (01) ==
LOC: ER 18:46
DX: F11.23 Opioid dependence with withdrawal (principal); T40.2X5A Adverse effect of other opioids, initial encounter; R10.84 Generalized abdominal pain; R11.2 Nausea with vomiting, unspecified; R19.7 Diarrhea, unspecified; G89.29 Other chronic pain; M54.9 Dorsalgia, unspecified; F17.210 Nicotine dependence, cigarettes, uncomplicated
CPT/HCPCS: 99284 ×2; 96374; 96372; 96375; 96361; 83690; 80053; 81001; 85027; J1980; J2060; J2270; J1200; J2765; J7030

== ENCOUNTER 2018-03-01 14:28 | Emergency (ER) | payer BC ==
--- NOTE | 2018-03-01 14:46 | Emergency Department Record ---
History of Present Illness - General Chief complaint: Vomiting Stated complaint: WITHDRAWAL Time Seen by Provider: 03/01/18 14:29 Source: Patient Mode of Arrival: Ambulatory Limitations: No limitations - History of Present Illness Initial comments: The patient is here due to the return of his nausea, vomiting, and tremors which he attributes to his narcotic withdrawal. The patient has a LONG hx of chronic back pain and narcotic use and now is trying to wean off the medicines. He is stretching out his MS Contin 60 mg pills and has been having intermittent withdrawal symptoms between doses. He was in the ER 2 days ago for the same thing. The patient also has been having his chronic back symptoms but they are not worse. He has had abdominal CT's and EGD's in the past for this type of vomiting also and they have been basically normal per the patient. MD complaint: Nausea, Vomiting Onset/Timin -: Hour(s) Description of Vomiting: Watery Severity: Moderate Severity scale (1-10): >10 Quality: Aching Consistency: Constant - Related Data Previous Rx's Medication Instructions Recorded Hyoscyamine Sulfate [Levsin-Sl] 0.125 mg SL Q12H #14 tab.subl 02/27/18 Ondansetron [Zofran Odt] 4 mg PO Q8H #20 tab.rapdis 02/27/18 Naproxen [Naprosyn] 500 mg PO BID #14 tablet.dr 03/01/18 Promethazine HCl [Phenergan] 25 mg RC BID #14 supp.rect 03/01/18 Allergies Allergy/AdvReac Type Severity Reaction Status Date / Time No Known Drug Allergies Allergy Verified 03/01/18 14:44 Travel Screening - Travel/Exposure Within Last 30 Days Have you traveled within the last 30 days?: No - Travel/Exposure Within Last Year Have you traveled outside the [place] in the last year?: No - Additonal Travel Details Have you been exposed to anyone with a communicable illness?: No - Travel Symptoms Symptom Screening: None Review of Systems Constitutional: Denies: Chills, Fever Eyes: Denies: Eye discharge ENT: Denies: Congestion Respiratory: Denies: Cough, Dyspnea Cardiovascular: Denies: Arrhythmia, Chest pain Endocrine: Reports: Fatigue Gastrointestinal: Reports: Nausea, Vomiting Genitourinary: Denies: Dysuria Musculoskeletal: Denies: Arthralgia Skin: Denies: Bruising Past Medical History - SOCIAL HISTORY Smoking Status: Current some day smoker Alcohol Use: None Drug Use: None - RESPIRATORY Hx Respiratory Disorders: Yes Hx Pneumonia: Yes - CARDIOVASCULAR Hx Cardio Disorders: Yes Comment:: high cholesterol - NEURO Hx Neuro Disorders: Yes Hx Neuropathy: Yes Comment:: chronic back pain - GI Hx GI Disorders: Yes Hx Nausea/Vomiting: Yes Hx Wt Loss/Wt Gain: Yes - Hx Genitourinary Disorders: No - ENDOCRINE Hx Endocrine Disorders: No Hx Diabetes: No Hx Thyroid Disease: No - MUSCULOSKELETAL Hx Musculoskeletal Disorders: Yes Comment:: chronic back pain - PSYCH Hx Psych Problems: No - HEMATOLOGY/ONCOLOGY Hx Hematology/Oncology Disorders: No Family Medical History Any Significant Family History?: No Hx Alcohol Use: Grandparents Hx Anxiety: Mother Hx Cancer: Grandparents Hx Dementia: Grandparents Hx Diabetes: Grandparents Hx Heart Disease: Grandparents Hx Seizures: Grandparents Hx Stroke: Grandparents Physical Exam - General General Appearance: Alert, Oriented x3, Cooperative, Mild distress - Head Head exam: Atraumatic - Eye Eye exam: Normal appearance, PERRL - ENT Throat exam: Normal inspection. negative: Tonsillar erythema, Tonsillar exudate - Neck Neck exam: Normal inspection, Full ROM. negative: Tenderness - Respiratory Respiratory exam: Normal lung sounds bilaterally. negative: Respiratory distress - Cardiovascular Cardiovascular Exam: Regular rate, Normal rhythm, Normal heart sounds - GI/Abdominal GI/Abdominal exam: Soft, Normal bowel sounds. negative: Tenderness - Extremities Extremities exam: Normal inspection, Full ROM, Normal capillary refill. negative: Tenderness - Neurological Neurological exam: Alert, Normal gait, Oriented X3, Reflexes normal. negative: Abnormal gait, Altered, Motor sensory deficit Course Vital Signs 03/01/18 14:38 Temperature 97.4 F L Pulse Rate 109 H Respiratory 16 Rate Blood Pressure 136/93 Pulse Ox 94 L - Reevaluation(s) Reevaluation #1: The patient is doing a lot better at this time. His nausea is resolving and his anxiety is much better. 03/01/18 15:29 Reevaluation #2: The patient is doing a lot better at this time. His nausea is MUCH improved and he no longer is anxious. He has no AP and on exam his abdomen is very soft and nontender. I did discuss the need for F/U this week for further treatment. 03/01/18 16:19 Medical Decision Making - Lab Data Result diagrams: 03/01/18 15:02 03/01/18 15:02 Disposition Disposition: Discharge Clinical Impression: Narcotic withdrawal Nausea and vomiting Qualifiers: Vomiting type: unspecified Vomiting Intractability: non-intractable Qualified Code(s): R11.2 - Nausea with vomiting, unspecified Disposition: Home, Self-Care Condition: (2) Stable Instructions: Acute Nausea and Vomiting (ED) Additional Instructions: Please take your medicines as directed and use the Phenergan Supp if needed. Try the Naprsoyn for pain along with the Flexeril. Please see your family doctor or Dr. Adrian early this next week for recheck and return to the ER for any worsening symptoms. Prescriptions: Naproxen [Naprosyn] 500 mg PO BID #14 tablet. Promethazine HCl [Phenergan] 25 mg RC BID #14 supp.rect Forms: Patient Portal Access Time of Disposition: 16:18 Quality - Quality Measures Quality Measures: N/A - Blood Pressure Screening View Details: Yes Does Patient Have Any of the Following: No Blood Pressure Classification: Pre-Hypertensive BP Reading Systolic Measurement: 122 Diastolic Measurement: 81 Screening for High Blood Pressure: < Pre-Hypertensive BP, F/U Documented > [ G8950] Pre-Hypertensive Follow-up Interventions: Referral to alternative/primary care provider.
[2018-03-01] MEDS ORDERED: 0.9 % SODIUM CHLORIDE 1,000 ML BAG IV ONE (14:51)
[2018-03-01] MEDS ORDERED: ONDANSETRON HCL IV 4 MG/2 ML VIAL IV ONE (14:51)
[2018-03-01] MEDS ORDERED: MORPHINE SULFATE 10 MG/ML VIAL IVP ONE (14:52)
[2018-03-01] MEDS ORDERED: LORAZEPAM 2 MG/ML VIAL IV ONE (14:52)
[2018-03-01] MEDS ORDERED: ONDANSETRON HCL IV 4 MG/2 ML VIAL IVP ONE (14:55)
[2018-03-01 15:13] LABS: HEMATOCRIT 43.8 % (42.0-52.0); HEMOGLOBIN 15.1 gm/dl (14.0-18.0); MEAN CELL VOLUME 89.4 fl (81-97); MEAN CORPUSCULAR HEMOGLOBIN 30.8 pg (27-33); MEAN CORPUSCULAR HGB CONC 34.5 g/dl (32-36); MEAN PLATELET VOLUME 10.9 fl (7.4-10.4); PLATELET COUNT 220 K/uL (130-400); RED CELL DISTRIBUTION WIDTH 13.3 % (11.5-14.5); WHITE BLOOD COUNT W/O DIFF 9.3 K/uL (4.2-12.2)
[2018-03-01 15:21] LABS: PLATELET ESTIMATE NORMAL (NORMAL)
[2018-03-01 15:27] LABS: BLOOD UREA NITROGEN 24 mg/dL (6-20)
[2018-03-01 15:28] LABS: EST GLOMERULAR FILTRATION RATE > 60 mL/min
[2018-03-01 15:30] LABS: GLUCOSE,RANDOM 117 mg/dL (74-109)
[2018-03-01 15:33] LABS: ALBUMIN 4.9 g/dL (4.0-5.0); ALKALINE PHOSPHATASE 64 U/L (40-129); ALT/SGPT 33 U/L (<41); AST/SGOT 39 U/L (10.0-50.0); BILIRUBIN,DIRECT < 0.2 mg/dL (0-0.3); LIPASE 31 U/L (13-60)
[2018-03-01] MEDS ORDERED: KETOROLAC 30 MG/ML VIAL IVP ONE (15:46)
[2018-03-01] MEDS ORDERED: LORAZEPAM 0.5 MG TABLET PO ONE (16:15)
== END 2018-03-01 16:34 | disposition home or self-care (01) ==
LOC: ER 14:28
DX: F11.23 Opioid dependence with withdrawal (principal); R11.2 Nausea with vomiting, unspecified; R25.1 Tremor, unspecified; F17.210 Nicotine dependence, cigarettes, uncomplicated
CPT/HCPCS: 99284 ×2; 96374; 96375; 96361; 83690; 80076; 80048; 85027; J1885; J2405; J2060; J2270; J7030